=== PATIENT | male | born 1975 | race Caucasian/White ===

== ENCOUNTER 2016-12-19 17:55 | Emergency (ER) | payer MEDICARE ==
[~2016-12-19] VITALS: Ht 182.9 cm; Wt 110.9 kg
[~2016-12-19 17:55] MED LIST: HCTZ25 PO; LISI40TA13 PO; METF500T4 PO; NAPR220C11 PO; [UNRECOGNIZED DRUG - OTHER] PO
[2016-12-19 17:59] VITALS: BP 140/105; PULSE 107; RESP 20; O2SAT 97
[2016-12-19 18:15] VITALS: BP 130/70; PULSE 96
--- NOTE | 2016-12-19 19:47 | ED.REPORT ---
HPI-Eye Problem Date of Service Dec 19, 2016 ED Provider: Robin Mares MD Pt is an otherwise healthy 41 year old male who presents to the ED complaining of right eye diplopia onset yesterday at 21:30 while [address]. He c/o associated dizziness. He denies headache, numbness, weakness, difficulty with balance or coordination, changes in thinking or speech, and tinnitus. Pt reports that he was driving when he noticed the double vision in his right eye. He initially presumed that his symptoms were a result of being tired and went to sleep. The pt reports that when he got up this morning, however, the diplopia was still present and he began to feel dizzy as a result. He consulted with his friend, prompting him to speak with an professor of musicology and neurologist prior to arrival. Nursing Notes Stated Complaint: STAT MRI Chief Complaint: Neuro Symptoms/ Deficits Nursing Notes Reviewed: Yes ([employer], meds not reconciled) Allergies: Coded Allergies: No Known Allergies (Unverified , 01/25/13) Scheduled ([tribafane]) PO DAILYWD Hydrochlorothiazide-Expunged, Do Not Renew! (Hydrochlorothiazide-Expunged, Do Not Renew!) 25 Mg Tablet 12.5 MG PO DAILY Lisinopril-Expunged Drug, Do Not Renew! (Lisinopril-Expunged Drug, Do Not Renew! ) 40 Mg Tablet 40 MG PO DAILY Metformin-Expunged Drug, Do Not Renew! (Metformin-Expunged Drug, Do Not Renew!) 500 Mg Tablet 500 MG PO PM Naproxen Sod-Expunged Drug, Do Not Renew!! (Aleve-Expunged Drug,Do Not Renew!) 220 Mg Capsule 220 MG PO DAILY General Time Seen by MD: 19:47 Chief Complaint Right eye affected Hx Obtained From: Patient Arrived By: Walk-in Sudden in Onset?: Yes Onset Occurred: Yesterday Symptom Duration: Since onset Severity: Current: No pain currently Severity: Maximum: No pain Recent Healthcare: No recent doctor visit, No recent hospitalization Similar Sx Previous: No Past Medical History Past Medical History Anxiety Depression Cellulitis Denies: Diabetes mellitus, Hypertension Past Surgical History Bilateral hand repair Gastric sleeve after removal of what sounds like sick extensive gastric polyps, and subsequent weight loss Family History Reports: Cancer Smoking History Unknown if Ever Smoker Social History Alcohol Use: "Social" Drug Use: Denies drug use Ambulatory Status Independent Review of Systems Denies left eye diplopia Eyes: Reports: Diplopia (Right eye) Ears / Nose / Throat: Denies: Ear ringing bilateral Neurologic: Reports: Dizziness, Vision change, Denies: Headache, Numbness, Problem walking, Slurred speech, Unable to speak , Weakness Complete sys rev & neg: except as marked. Psychiatric: Denies: Change mental status Physical Exam Initial Vital Signs Vital Signs (First) Date Time Temp Pulse Resp B/P Pulse Ox O2 Delivery O2 Flow Rate FiO2 12/19/16 17:59 36.7 107 20 140/105 97 12/19/16 20:54 Room Air Initial VS: Reviewed, Vital signs abnormal (Hr 107) Neck: Supple, Full range of motion Respiratory: Breath sounds normal, Clear to auscultation, No respiratory distress Cardiovascular: Regular rate & rhythm, Heart sounds normal, Intact distal pulses Abdomen / GI: Soft, Non-tender Extremities: Vascular intact, Neuro intact Skin: Warm, Dry, No cyanosis Psychiatric: Mood/affect normal, Behavior normal Head / Eyes: Atraumatic, Normocephalic Eye is now patched following the ophthalmologic exam; I did not perform a secondary exam for the eye. General/Constitutional: Awake, Alert Neurologic: Oriented X3, Speech NL, No motor deficits, No sensory deficits Interpretation & Diagnostics MRI BRAIN WITH AND WITHOUT CONTRAST - IMPRESSION: 1. No acute intracranial abnormality. 2. No intraorbital mass lesions or abnormal enhancement identified. Dictated by: Cleve Durham M.D. on 12/19/2016 at 20:20 Re-Eval/Medical Decision Med Decision/Clinical Course This is a 41-year-old male sent from professor of musicology for a stat MRI MRA after discussion with the neuro-professor of musicology at [facility]. The patient developed diplopia last evening while driving the vehicle, the persisted today. On exam is noted to have diplopia, and some nystagmus and maybe a little bit of ptosis as well in the right eye. Symptoms resolved with patch application. According to the professor of musicology's basic eye exam was normal except for the findings described above. The patient has no other symptoms-no headache, no numbness, weakness paresthesias, speech or language difficulties, ataxia, etc. He has no major medical problems except for borderline hypertension. His NIH stroke scale is 0. He otherwise appears well. Eye exam was not repeated having just been dilated and performed by the professor of musicology. MRI was obtained but was interpreted as normal. The case was rediscussed with the professor of musicology, the plan is discharged home professor of musicology is arranging a referral to the neuro-professor of musicology at [facility] as outpatient. Routine precautions reviewed. Patient's discharged in stable condition Source of Hx: Old records Re-Evaluation/Progress : Time of Eval: 20:50 Re-Evaluation/Progress Note: Pt rechecked. Informed pt of plan for discharge. Pt understands and agrees with plan for discharge. F/U instructions and RTER warnings given. All questions addressed. Consultation #1: Consulted With: [employer] Sales Representative Call Returned at: 19:30 Field Care Advocate: Agrees with eval, Agrees with plan Note: Consult with Dr. Candace Solomon at [facility]. Discussed pt's case. Consultation #2: Consulted With: [employer] Sales Representative Call Returned at: 20:44 Field Care Advocate: Agrees with eval, Agrees with plan Note: Consult with Dr. Candace Solomon at [facility]. Discussed pt's case and MRI results. Differential Diagnosis: Negative: Acute vision loss, Chalazion, Conjunctivitis , bacterial, Conjunctivitis, chlamydia, Conjunctivitis, viral, Globe rupture, Herpes simplex keratitis, Rust ring, Subconjunctiva hemorrhage Counseled Regarding: Diagnosis, Need for follow-up, When/why to return to ED Discharge & Departure Primary Impression: Diplopia Disposition: Home Discharge Condition All VS Reviewed: Yes Condition: Stable Additional Instructions: 1. Your MRI was normal - a dangerous cause of the symptoms (stroke, MS, structural lesion etc... was not identified) 2. This means we do not know the exact cause at this time. 3. I have talked with the opthomologist Dr. Solomon and he is working to have you referred to neuro-opthomologic specialist at [facility] and plans to have the office contact you tomorrow. (If you have not heard from them by noon, call them.) 4. We have tried to digitally transmit the MRI to [facility] to help facilitate their referral but we do not have a way at this hour to verify their receipt of images. 5. Return if new or worsening symptoms. Referrals: Raza Varghese MD (PCP) [facility] Scribe Attestation Portions of this note were transcribed by Olivia Azar. I, Dr. Mares personally performed the history, physical exam and medical decision-making; I reviewed and confirmed the accuracy of the information in the transcribed note. Signed by: Brad Lopez, 12/19/16. copies to: Raza Varghese MD; [facility] Robin Mares MD Dec 19, 2016 19:47 Olivia Flores Dec 19, 2016 19:52
--- NOTE | 2016-12-19 20:30 | DRSVH ---
PROCEDURE: MRI BRAIN WITH AND WITHOUT CONTRAST ([id number]) INDICATIONS: diplopia & ptosis TECHNIQUE: Noncontrast axial T1 spin echo, axial T2 fast spin echo, sagittal and axial FLAIR, coronal T2 fast sp in echo, axial gradient echo, axial diffusion and ADC through the brain. After the administration of contrast, axial and coronal 3D VIBE or T1 spin echo with fat saturation through the brain. COMPARISON: None. FINDINGS: Image quality: Excellent. CSF Spaces: Basal cisterns are patent. No extra-axial fluid collections. Ventricles are normal in size and shape. Brain: No hemorrhage, mass, or mass effect. No abnormal intracranial enhancement. The brainstem ap pears normal. Diffusion-weighted images demonstrate no acute infarcts. There are a few scattered fuentes bcortical and periventricular foci of white matter T2 hyperintensity likely representing mild chronic white matter small vessel ischemic changes Normal intravascular flow voids are present. Skull and face: Calvarial marrow is normal in signal. Orbits appear within normal limits without in traorbital mass lesions or abnormal enhancement. Sinuses: There is mild mucosal thickening within the ethmoid and maxillary sinuses. Mastoid air cell s are clear. IMPRESSION: 1. No acute intracranial abnormality. 2. No intraorbital mass lesions or abnormal enhancement identified. Dictated by: Cleve Durham M.D. on 12/19/2016 at 20:20 Approved by: Cleve Durham M.D. on 12/19/2016 at 20:29
[2016-12-19 20:54] VITALS: BP 124/82; PULSE 85; RESP 16; O2SAT 100
== END 2016-12-19 21:53 | disposition home or self-care (01) ==
LOC: SED 17:55
DX: H53.2 Diplopia (principal)
CPT/HCPCS: 70553; 99284; A9585